=== PATIENT | male | born 1985 | race Two or more races ===

== ENCOUNTER 2021-10-24 21:44 | Emergency (ER) | payer SELFPAY ==
--- NOTE | 2021-10-25 00:25 | NUR ---
Patient called the ER and states "I don't want to be seen anymore and will see PMD in AM"
== END 2021-10-25 00:30 | disposition left against medical advice (07) ==
LOC: ER 21:48
DX: Z53.21 Procedure and treatment not carried out due to patient leaving prior to being seen by health care provider (principal)